=== PATIENT | female | born 1980 ===

== ENCOUNTER 2016-11-10 13:47 | Emergency (ER) | payer OTHER ==
[2016-11-10 14:16] VITALS: RESP 18; O2SAT 100
[2016-11-10 14:57] LABS: BASO # 0.1 K/uL (0.0-0.2); BASO % 0.9 % (0.0-2.0); EOS # 0.1 K/uL (0.0-0.7); EOS % 1.7 % (0.0-4.0); HEMATOCRIT 37.6 % (34.0-47.0); LYMPH # 2.5 K/uL (1.0-4.3); LYMPH % 42.4 % (20.0-40.0); MEAN CELL VOLUME 80.4 fL (81.0-99.0); MEAN CORPUSCULAR HEMOGLOBIN 26.5 pg (27.0-31.0); MEAN PLATELET VOLUME 7.3 fL (7.2-11.7); MONO # 0.5 K/uL (0.0-0.8); MONO % 8.8 % (0.0-10.0); NRBC % 0.1 % (0.0-2.0); RED CELL DISTRIBUTION WIDTH 12.9 % (11.5-14.5); WHITE BLOOD COUNT 5.8 K/uL (4.8-10.8)
--- NOTE | 2016-11-10 14:58 | C.PDOC ---
History Of Present Illness 36 yr old female presents to the ER with complaints of headache, dizziness, nausea and back pain for the past few days. Patient reports the headache is chronic for the past 2-3 years usually is intermittent but last night the headache got worse with nausea and had hard time falling asleep. Patient denies fever, chills, vision changes, chest pain, SOB, vomiting, abdominal pain, diarrhea, weakness or numbness. Time Seen by Provider: 11/10/16 14:19 Chief Complaint (Nursing): Headache History Per: Patient History/Exam Limitations: no limitations Onset/Duration Of Symptoms: Days Current Symptoms Are (Timing): Still Present Past Medical History Reviewed: Historical Data, Nursing Documentation, Vital Signs Vital Signs: Last Vital Signs Temp 97.5 F L 11/10/16 16:51 Pulse 57 L 11/10/16 16:51 Resp 18 11/10/16 16:51 BP 119/84 11/10/16 16:51 Pulse Ox 100 11/10/16 16:51 Family History: States: No Known Family Hx - Social History Hx Alcohol Use: Yes Hx Substance Use: No Review Of Systems Except As Marked, All Systems Reviewed And Found Negative. Constitutional: Negative for: Fever, Chills Eyes: Negative for: Vision Change Cardiovascular: Negative for: Chest Pain Respiratory: Negative for: Shortness of Breath Gastrointestinal: Positive for: Nausea. Negative for: Vomiting, Abdominal Pain , Diarrhea Musculoskeletal: Positive for: Back Pain Neurological: Positive for: Headache, Dizziness. Negative for: Weakness, Numbness Physical Exam - Physical Exam Appears: Well, Non-toxic, No Acute Distress Skin: Warm, Dry Head: Atraumatic, Normacephalic Oral Mucosa: Moist Chest: Symmetrical, No Tenderness Cardiovascular: Rhythm Regular, No Murmur Respiratory: Normal Breath Sounds, No Rales, No Rhonchi, No Stridor, No Wheezing Gastrointestinal/Abdominal: Normal Exam, Soft, No Tenderness, No Guarding, No Rebound Extremity: Normal ROM, No Swelling Neurological/Psych: Oriented x3, Normal Speech, Normal Motor ED Course And Treatment - Laboratory Results Result Diagrams: 11/10/16 14:54 11/10/16 14:54 O2 Sat by Pulse Oximetry: 100 Medical Decision Making Medical Decision Making: PLAN: * CBC * Urinalysis * Imitrex PO * Motrin PO * Tylenol PO * Reglan PO Disposition Counseled Patient/Family Regarding: Studies Performed, Diagnosis, Need For Followup - Disposition Referrals: [facility] [Outside] Disposition: HOME/ ROUTINE Disposition Time: 16:09 Condition: STABLE Prescriptions: SUMAtriptan [Imitrex] 50 mg PO TID PRN #20 tab PRN Reason: Pain, Moderate (4-7) Ibuprofen [Motrin] 600 mg PO TID #15 tab Instructions: Acute Headache (ED), Migraine Headache (ED) Forms: Gen Discharge Inst [place] - POA Present On Arrival: None (') - Clinical Impression Clinical Impression: Migraine, Headache - Scribe Statement The provider has reviewed the documentation as recorded by the Andrés Marrufo Provider Attestation: All medical record entries made by the Andrés were at my direction and personally dictated by me. I have reviewed the chart and agree that the record accurately reflects my personal performance of the history, physical exam, medical decision making, and the department course for this patient. I have also personally directed, reviewed, and agree with the discharge instructions and disposition.
[2016-11-10 15:06] LABS: URINE BACTERIA RARE (<OCC); URINE BILIRUBIN NEGATIVE (NEGATIVE); URINE BLOOD 1+ (NEGATIVE); URINE COLOR Yellow (YELLOW); URINE GLUCOSE (UA) NORMAL (Normal); URINE KETONE NEGATIVE (NEGATIVE); URINE LEUKOCYTE ESTERASE NEG Leu/uL (Negative); URINE PROTEIN NEGATIVE (NEGATIVE); URINE UROBILINOGEN NORMAL mg/dL (0.2-1.0); WBC URINE < 1 /hpf (0-5)
[2016-11-10 15:21] LABS: CHLORIDE 103 mmol/L (98-107); POTASSIUM 4.1 mmol/L (3.6-5.2); SODIUM 139 mmol/L (132-148)
[2016-11-10 15:23] LABS: GFR AFRICAN-AMERICAN > 60
[2016-11-10 15:24] LABS: BLOOD UREA NITROGEN 13 mg/dL (7-17); CALCIUM 9.1 mg/dl (8.6-10.4); CARBON DIOXIDE 25 mmol/L (22-30); GLUCOSE,RANDOM 83 mg/dL (65-105)
[2016-11-10 16:52] VITALS: BP 119/84; PULSE 57; TEMP 97.5
== END 2016-11-10 16:54 | disposition home or self-care (01) ==
LOC: C.ER 13:47
DX: G43.909 Migraine, unspecified, not intractable, without status migrainosus (principal)

== ENCOUNTER 2017-05-16 16:25 | Emergency (ER) | payer OTHER ==
[2017-05-16 16:35] VITALS: RESP 18; TEMP 97.9
[2017-05-16 18:02] LABS: RBC URINE 4 /hpf (0-3); URINE BACTERIA RARE (<OCC); URINE BILIRUBIN NEGATIVE (NEGATIVE); URINE BLOOD 1+ (NEGATIVE); URINE COLOR Yellow (YELLOW); URINE GLUCOSE (UA) NORMAL (Normal); URINE KETONE NEGATIVE (NEGATIVE); URINE LEUKOCYTE ESTERASE NEG Leu/uL (Negative); URINE PROTEIN NEGATIVE (NEGATIVE); URINE UROBILINOGEN NORMAL mg/dL (0.2-1.0); WBC URINE < 1 /hpf (0-5)
--- NOTE | 2017-05-16 19:04 | C.PDOC ---
History Of Present Illness 36 year old female presents to the ED with complaints dizziness, headache, nausea, abdominal pain, fever, and vaginal discharge for three days. She denies hematuria, dysuria, visual changes, vomiting, cough, diarrhea, or sore throat. Time Seen by Provider: 05/16/17 16:48 Chief Complaint (Nursing): Flu-like Symptoms History Per: Patient History/Exam Limitations: no limitations Onset/Duration Of Symptoms: Days (3 days ) Current Symptoms Are (Timing): Still Present Location Of Pain: Diffuse Myalgias, Headache Sick Contacts (Context): None Associated Symptoms: Fever, Nausea. denies: Sore Throat, Cough, Vomiting, Diarrhea Recent travel outside of the [place]: No Past Medical History Reviewed: Historical Data, Nursing Documentation, Vital Signs Vital Signs: Last Vital Signs Temp 97.9 F 05/16/17 16:30 Pulse 75 05/16/17 19:17 Resp 18 05/16/17 19:17 BP 119/65 05/16/17 19:17 Pulse Ox 99 05/16/17 21:44 Family History: States: Unknown Family Hx - Social History Hx Alcohol Use: Yes Hx Substance Use: No Review Of Systems Constitutional: Positive for: Fever. Negative for: Chills Cardiovascular: Negative for: Chest Pain Respiratory: Negative for: Cough, Shortness of Breath Gastrointestinal: Positive for: Nausea, Abdominal Pain. Negative for: Vomiting , Diarrhea Genitourinary: Positive for: Vaginal Discharge. Negative for: Dysuria, Hematuria, Vaginal Bleeding Neurological: Positive for: Headache, Dizziness Physical Exam - Physical Exam Appears: Non-toxic, No Acute Distress Skin: Warm, Dry Head: Atraumatic, Normacephalic Eye(s): bilateral: Normal Inspection, PERRL, EOMI Ear(s): Bilateral: Normal Nose: Normal, No Discharge Oral Mucosa: Moist Throat: Normal, No Erythema, No Exudate Neck: Normal ROM, No Midline Cervical Tenderness, No Paracervical Tenderness, Supple Chest: Symmetrical, No Deformity, No Tenderness Cardiovascular: Rhythm Regular, No Murmur Respiratory: No Rales, No Rhonchi, No Wheezing, Other (clear to auscultation bilaterally ) Gastrointestinal/Abdominal: Normal Exam, Soft, No Tenderness Back: Normal Inspection, No CVA Tenderness, No Vertebral Tenderness, No Paraspinal Tenderness Pelvic: Normal External Exam, No Vaginal Bleeding, Vaginal Discharge (scany grayish ), No Cervical Motion Tenderness, No Adnexal Tenderness Extremity: Normal ROM, No Tenderness, No Swelling Neurological/Psych: Oriented x3, Normal Motor, Normal Sensation Gait: Steady ED Course And Treatment O2 Sat by Pulse Oximetry: 99 (RA) Pulse Ox Interpretation: Normal Progress Note: Labs were ordered and patient was given Motrin and Flagyl. Disposition - Disposition Referrals: [facility] [Outside] Disposition: HOME/ ROUTINE Disposition Time: 18:52 Condition: GOOD Additional Instructions: Follow up with the OBGYN within 1-2 days. return if worsened. 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 - Scribe Statement The provider has reviewed the documentation as recorded by the Scribe Maisha Martinez All medical record entries made by the Vitaibe were at my direction and personally dictated by me. I have reviewed the chart and agree that the record accurately reflects my personal performance of the history, physical exam, medical decision making, and the department course for this patient. I have also personally directed, reviewed, and agree with the discharge instructions and disposition.
[2017-05-16 19:22] VITALS: BP 119/65; PULSE 75
[2017-05-16 21:34] VITALS: O2SAT 99
== END 2017-05-16 19:24 | disposition home or self-care (01) ==
LOC: C.ER 16:25
DX: N76.0 Acute vaginitis (principal)

== ENCOUNTER 2017-10-07 19:23 | Emergency (ER) | payer OTHER ==
[2017-10-07 19:23] VITALS: BMI 26.1
[2017-10-07 19:31] VITALS: BP 110/75; PULSE 105; RESP 18; TEMP 100.2; O2SAT 98
[2017-10-07] MEDS ORDERED: Sodium Chloride 0.9% 1,000 ML IV STA (20:24)
--- NOTE | 2017-10-07 20:24 | C.PDOC ---
History Of Present Illness 37 y/o female presents to the ER complaining of fever and sore throat which has been present for the past 2 days. Patient states that she took 2 doses of leftover Amoxicillin. She also took Motrin at 10 am today. Patient denies having abdominal pain, nausea, vomiting, and diarrhea. HPI: Influenza Time Seen by Provider: 10/07/17 19:40 Chief Complaint: Flu-like Symptoms History Per: Patient Exam Limitations: no limitations Onset/Duration Of Symptoms: Days Symptoms include: fever, sore throat. denies: vomiting, diarrhea Risk factors for flu complications: No: adult > 65 years Past Medical History Reviewed: Historical Data, Nursing Documentation, Vital Signs Vital Signs: Last Vital Signs Temp 100.2 F H 10/07/17 19:28 Pulse 105 H 10/07/17 19:28 Resp 18 10/07/17 19:28 BP 110/75 10/07/17 19:28 Pulse Ox 98 10/07/17 19:28 - Medical History PMH: Kidney Stones, Chronic Kidney Disease Other Surgeries: Hx of surgeries Family History: States: No Known Family Hx - Social History Hx Alcohol Use: Yes Hx Substance Use: No - Immunization History Hx Tetanus Toxoid Vaccination: No Hx Influenza Vaccination: No Hx Pneumococcal Vaccination: No Review Of Systems Except As Marked, All Systems Reviewed And Found Negative. Constitutional: Positive for: Fever. Negative for: Chills ENT: Positive for: Throat Pain Gastrointestinal: Negative for: Nausea, Vomiting, Abdominal Pain, Diarrhea Physical Exam - Physical Exam Appears: Non-toxic, No Acute Distress Skin: Normal Color, Warm Head: Atraumatic, Normacephalic Eye(s): bilateral: Normal Inspection Ear(s): Bilateral: Normal Nose: Normal Oral Mucosa: Moist Throat: No Erythema, Exudate (tonsillar), Other (enlarged tonsils) Neck: Normal ROM, Supple Lymphatic: Adenopathy (anterior cervical and submandibular) Chest: Symmetrical Cardiovascular: Rhythm Regular Respiratory: Normal Breath Sounds, No Rales, No Rhonchi, No Wheezing Extremity: Normal ROM Neurological/Psych: Oriented x3, Normal Speech, Normal Motor, Normal Sensation - Laboratory Results Result Diagrams: 10/07/17 20:39 10/07/17 20:39 - ECG O2 Sat by Pulse Oximetry: 98 (RA) Pulse Ox Interpretation: Normal - Progress ED Course And Treament: Labs and Rapid Strep ordered. Patient given IV Fluids and Toradol IV. Rapid strep and monospot are negative. Patient was given one dose of Clindamycin po. On re-evaluation patient feels better, no drooling/stridor. Patient speaks in full sentences, no difficulties swallowing. Disposition - Disposition Referrals: [facility] [Outside] Disposition: HOME/ ROUTINE Disposition Time: 21:26 Condition: STABLE Additional Instructions: Follow up in Clinic within 1-2 days. Return to ED if feel worse. 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 - Scribe Statement The provider has reviewed the documentation as recorded by the Andrés Fagan Provider Attestation All medical record entries made by the Vitaibe were at my direction and personally dictated by me. I have reviewed the chart and agree that the record accurately reflects my personal performance of the history, physical exam, medical decision making, and the department course for this patient. I have also personally directed, reviewed, and agree with the discharge instructions and disposition.
[2017-10-07] MEDS ORDERED: Dexamethasone 4 mg/1 ml IVP STA (20:25)
[2017-10-07] MEDS ORDERED: Dexamethasone 4 mg/1 ml ONE (20:30)
[2017-10-07] MEDS ORDERED: Sodium Chloride 0.9% 1,000 ML ONE (20:30)
[2017-10-07 20:43] LABS: BASO # 0.1 K/uL (0.0-0.2); BASO % 0.4 % (0.0-2.0); EOS % 0.1 % (0.0-4.0); HEMOGLOBIN 12.8 g/dL (11.0-16.0); LYMPH # 1.5 K/uL (1.0-4.3); LYMPH % 10.7 % (20.0-40.0); MEAN CORPUSCULAR HEMOGLOBIN 25.6 pg (27.0-31.0); MEAN CORPUSCULAR HGB CONC 32.5 g/dL (33.0-37.0); MEAN PLATELET VOLUME 7.6 fL (7.2-11.7); MONO # 0.8 K/uL (0.0-0.8); MONO % 5.8 % (0.0-10.0); NEUT # 11.4 K/uL (1.8-7.0); RBC 4.99 Mil/uL (3.80-5.20); RED CELL DISTRIBUTION WIDTH 13.9 % (11.5-14.5)
[2017-10-07 20:45] LABS: WHITE BLOOD COUNT 13.7 K/uL (4.8-10.8)
[2017-10-07 20:57] LABS: ALB/GLOB RATIO 1.1 (1.0-2.1); ALBUMIN 4.3 g/dL (3.5-5.0); ALT/SGPT 21 U/L (9-52); AST/SGOT 18 U/L (14-36); BLOOD UREA NITROGEN 12 mg/dL (7-17); CALCIUM 8.9 mg/dl (8.6-10.4); GFR AFRICAN-AMERICAN > 60; GFR NON-AFRICAN AMERICAN > 60
== END 2017-10-07 21:57 | disposition home or self-care (01) ==
LOC: C.ER 19:23
DX: J02.9 Acute pharyngitis, unspecified (principal)
CPT/HCPCS: 80053; 85025; 86308; 87070; 87430; 96361; 96374; 96375; 99284; J1100; J1885; J7040

== ENCOUNTER 2018-01-27 00:46 | Emergency (ER) | payer OTHER ==
[2018-01-27 00:47] VITALS: BMI 26.1
[2018-01-27 00:55] VITALS: TEMP 97.8
[2018-01-27] MEDS ORDERED: Sodium Chloride 0.9% 1,000 ML IV ONE (01:36)
[2018-01-27] MEDS ORDERED: Sodium Chloride 0.9% 1,000 ML ONE (02:23)
[2018-01-27 02:24] LABS: BASO % 0.7 % (0.0-2.0); EOS # 0.1 K/uL (0.0-0.7); EOS % 1.7 % (0.0-4.0); HEMOGLOBIN 11.1 g/dL (11.0-16.0); LYMPH # 2.4 K/uL (1.0-4.3); MEAN CELL VOLUME 77.7 fL (81.0-99.0); MEAN CORPUSCULAR HGB CONC 33.4 g/dL (33.0-37.0); MEAN PLATELET VOLUME 7.7 fL (7.2-11.7); MONO # 0.7 K/uL (0.0-0.8); MONO % 11.2 % (0.0-10.0); NEUT # 2.8 K/uL (1.8-7.0); NEUT % 46.4 % (50.0-75.0); NRBC % 0.1 % (0.0-2.0); RBC 4.26 Mil/uL (3.80-5.20); RED CELL DISTRIBUTION WIDTH 13.5 % (11.5-14.5)
[2018-01-27 02:29] LABS: SQUAMOUS EPITHIAL 21 /hpf (0-5); URINE AMORPHOUS SEDIMENT RARE /ul (<OCC); URINE BACTERIA RARE (<OCC); URINE BILIRUBIN NEGATIVE (NEGATIVE); URINE BLOOD 2+ (NEGATIVE); URINE CLARITY Hazy (Clear); URINE COLOR Yellow (YELLOW); URINE GLUCOSE (UA) NORMAL (Normal); URINE LEUKOCYTE ESTERASE NEG Leu/uL (Negative); URINE PROTEIN NEGATIVE (NEGATIVE)
[2018-01-27 02:39] LABS: ALB/GLOB RATIO 1.3 (1.0-2.1); ALT/SGPT 54 U/L (9-52); AST/SGOT 35 U/L (14-36); BLOOD UREA NITROGEN 12 mg/dL (7-17); CALCIUM 9.1 mg/dl (8.6-10.4); GFR AFRICAN-AMERICAN > 60; GFR NON-AFRICAN AMERICAN > 60; LIPASE 71 U/L (23-300)
--- NOTE | 2018-01-27 03:12 | C.PDOC ---
History Of Present Illness 37 year old female patient presents to the ER with complains of abdominal pain associated with nausea and diarrhea for 5 days. The diarrhea has not subsided nor has it improved with fluids. Patient denies fever, chills, travelling, and vomiting. Time Seen by Provider: 01/27/18 01:19 Chief Complaint (Nursing): Abdominal Pain History Per: Patient History/Exam Limitations: no limitations Onset/Duration Of Symptoms: Days Current Symptoms Are (Timing): Still Present Location Of Pain/Discomfort: Diffuse Associated Symptoms: Nausea, Diarrhea. denies: Fever, Vomiting Recent travel outside of the [place]: No Additional History Per: Patient Abnormal Vaginal Bleeding: No Past Medical History Reviewed: Historical Data, Nursing Documentation, Vital Signs Vital Signs: Last Vital Signs Temp 97.8 F 01/27/18 03:31 Pulse 80 01/27/18 03:31 Resp 14 01/27/18 03:31 BP 120/80 01/27/18 03:31 Pulse Ox 97 01/27/18 04:57 - Medical History PMH: Kidney Stones, Chronic Kidney Disease Surgical History: No Surg Hx Family History: States: Unknown Family Hx - Social History Hx Alcohol Use: Yes Hx Substance Use: No - Immunization History Hx Tetanus Toxoid Vaccination: No Hx Influenza Vaccination: No Hx Pneumococcal Vaccination: No Review Of Systems Except As Marked, All Systems Reviewed And Found Negative. Constitutional: Negative for: Fever Cardiovascular: Negative for: Chest Pain, Palpitations Respiratory: Negative for: Cough, Shortness of Breath Gastrointestinal: Positive for: Nausea, Abdominal Pain, Diarrhea. Negative for : Vomiting Musculoskeletal: Negative for: Back Pain Neurological: Negative for: Weakness, Numbness Physical Exam - Physical Exam Appears: Non-toxic, No Acute Distress Skin: Normal Color, Warm, Dry Head: Atraumatic, Normacephalic Eye(s): bilateral: Normal Inspection Ear(s): Bilateral: Normal Oral Mucosa: Moist Throat: Normal, No Erythema, No Exudate Neck: Normal ROM, Supple Chest: Symmetrical, No Deformity Cardiovascular: Rhythm Regular Respiratory: Normal Breath Sounds, No Rales, No Rhonchi, No Wheezing Gastrointestinal/Abdominal: Bowel Sounds (increased), Soft, No Tenderness, No Guarding, No Rebound Back: No CVA Tenderness Extremity: Normal ROM (x4), No Tenderness, No Swelling Neurological/Psych: Oriented x3, Normal Speech Gait: Steady ED Course And Treatment - Laboratory Results Result Diagrams: 01/27/18 02:20 01/27/18 02:20 Urine POC: Negative O2 Sat by Pulse Oximetry: 97 (RA) Pulse Ox Interpretation: Normal Progress Note: Ordered: blood work, Famotidine IVP, Metoclopramide, IV fluid, and urinalysis. Patient feels better after receiving IV fluids and meds. Return precautiok Reassessment Condition: Improved Disposition Counseled Patient/Family Regarding: Diagnosis, Need For Followup - Disposition Referrals: [facility] [Outside] Disposition: HOME/ ROUTINE Disposition Time: 03:08 Condition: STABLE Additional Instructions: Increase PO fluids ( Gatorade, vitamin water, white bread, white rice, tea, clear soup, jello No Dairy for at least 24 hrs Return to ER if worse Prescriptions: Dicyclomine [Dicyclomine HCl] 10 mg PO DAILY #10 cap Instructions: Viral Gastroenteritis, Adult (DC) Forms: [employer] (Ugandan) Print Language: TURKISH - Clinical Impression Clinical Impression: Gastroenteritis - PA / STORAGE ENGINEER / Resident Statement / has reviewed & agrees with the documentation as recorded. - Scribe Statement The provider has reviewed the documentation as recorded by the Andrés Fraga Do All medical record entries made by the Scribe were at my direction and personally dictated by me. I have reviewed the chart and agree that the record accurately reflects my personal performance of the history, physical exam, medical decision making, and the department course for this patient. I have also personally directed, reviewed, and agree with the discharge instructions and disposition.
[2018-01-27 03:32] VITALS: BP 120/80; PULSE 80; RESP 14
[2018-01-27 04:39] VITALS: O2SAT 97
== END 2018-01-27 03:32 | disposition home or self-care (01) ==
LOC: C.ER 00:46
DX: K52.9 Noninfective gastroenteritis and colitis, unspecified (principal); N18.9 Chronic kidney disease, unspecified; Z87.442 Personal history of urinary calculi
CPT/HCPCS: 80053; 81001; 83690; 84703; 85025; 96374; 96375; 99283; J2765; J7030

== ENCOUNTER 2018-08-17 18:35 | Emergency (ER) | payer OTHER ==
[2018-08-17 18:35] VITALS: BMI 26.1
[2018-08-17] MEDS ORDERED: Sodium Chloride 0.9% 1,000 ML IV STA (19:54)
[2018-08-17] MEDS ORDERED: SODIUM CHLORIDE 0.9% IV STA (19:54)
[2018-08-17] MEDS ORDERED: LIDOCAINE IV STA (19:54)
[2018-08-17] MEDS ORDERED: Iohexol 240 (50 ml) PO ONE (19:55)
[2018-08-17 20:09] LABS: SQUAMOUS EPITHIAL 1 /hpf (0-5); URINE BILIRUBIN NEGATIVE (NEGATIVE); URINE BLOOD 2+ (NEGATIVE); URINE CLARITY Clear (Clear); URINE COLOR Yellow (YELLOW); URINE GLUCOSE (UA) NORMAL (Normal); URINE HYALINE CAST 0-2 /lpf (0-2); URINE LEUKOCYTE ESTERASE NEG Leu/uL (Negative); URINE PROTEIN NEGATIVE (NEGATIVE); URINE UROBILINOGEN NORMAL mg/dL (0.2-1.0)
[2018-08-17 20:18] LABS: BASO % 0.7 % (0.0-2.0); EOS # 0.1 K/uL (0.0-0.7); HEMOGLOBIN 12.1 g/dL (11.0-16.0); LYMPH # 2.9 K/uL (1.0-4.3); LYMPH % 39.1 % (20.0-40.0); MEAN CORPUSCULAR HEMOGLOBIN 25.3 pg (27.0-31.0); MEAN CORPUSCULAR HGB CONC 31.5 g/dL (33.0-37.0); MONO # 0.5 K/uL (0.0-0.8); MONO % 7.1 % (0.0-10.0); NEUT # 3.8 K/uL (1.8-7.0); NEUT % 51.1 % (50.0-75.0); RBC 4.76 Mil/uL (3.80-5.20); RED CELL DISTRIBUTION WIDTH 14.6 % (11.5-14.5); WHITE BLOOD COUNT 7.5 K/uL (4.8-10.8)
[2018-08-17] MEDS ORDERED: Sodium Chloride 0.9% 1,000 ML ONE (20:21)
[2018-08-17 20:23] LABS: MEAN CELL VOLUME 80.4 fL (81.0-99.0)
[2018-08-17 20:32] LABS: ALB/GLOB RATIO 1.4 (1.0-2.1); ALBUMIN 4.6 g/dL (3.5-5.0); ALT/SGPT 16 U/L (9-52); AST/SGOT 20 U/L (14-36); BLOOD UREA NITROGEN 14 mg/dL (7-17); CALCIUM 9.2 mg/dl (8.6-10.4); GFR NON-AFRICAN AMERICAN > 60
[2018-08-17] MEDS ORDERED: Iohexol 240 (50 ml) ONE (20:35)
--- NOTE | 2018-08-17 21:05 | C.PDOC ---
History Of Present Illness Patient is a 38 year old female who presents to the ED c/o lower back and abdominal pain that has began 3 days ago. As per patient's family, the pain first began in her back and then progressed to her abdomen. Patient states the pain is currently strongest in her abdomen. She denies any CP, SOB, hematuria, dysuria, nausea, vomiting, or diarrhea. Time Seen by Provider: 08/17/18 19:18 Chief Complaint (Nursing): Female Genitourinary History Per: Patient, Family History/Exam Limitations: language barrier Onset/Duration Of Symptoms: Days (3) Current Symptoms Are (Timing): Still Present Recent travel outside of the [place] States: No Additional History Per: Patient, Family Past Medical History Reviewed: Historical Data, Nursing Documentation, Vital Signs Vital Signs: Last Vital Signs Temp 98 F 08/17/18 18:42 Pulse 64 08/17/18 20:53 Resp 18 08/17/18 20:53 BP 139/90 08/17/18 20:53 Pulse Ox 98 08/17/18 18:42 - Medical History PMH: Kidney Stones, Chronic Kidney Disease Surgical History: No Surg Hx Family History: States: Unknown Family Hx - Social History Hx Alcohol Use: No Hx Substance Use: No - Immunization History Hx Tetanus Toxoid Vaccination: No Hx Influenza Vaccination: No Hx Pneumococcal Vaccination: No Review Of Systems Cardiovascular: Negative for: Chest Pain Respiratory: Negative for: Shortness of Breath Gastrointestinal: Positive for: Abdominal Pain. Negative for: Nausea, Vomiting, Diarrhea Genitourinary: Negative for: Dysuria, Hematuria Musculoskeletal: Positive for: Back Pain (lower) Physical Exam - Physical Exam Appears: Non-toxic, No Acute Distress Skin: Normal Color, Warm, Dry Head: Atraumatic, Normacephalic Oral Mucosa: Moist Neck: Normal ROM, Supple Chest: Symmetrical, No Deformity Cardiovascular: Rhythm Regular, No Murmur Respiratory: Normal Breath Sounds, No Rales, No Rhonchi, No Wheezing Gastrointestinal/Abdominal: Soft, Tenderness (mildly tender to right groin area) Back: CVA Tenderness (minor right ), Other (full ROM without difficulty ) Extremity: Normal ROM Neurological/Psych: Oriented x3, Normal Speech, Normal Cognition ED Course And Treatment - Laboratory Results Result Diagrams: 08/17/18 20:12 08/17/18 20:12 Lab Results: Total Bilirubin 0.2 mg/dL (0.2-1.3) 08/17/18 20:12 AST 20 U/L (14-36) 08/17/18 20:12 ALT 16 U/L (9-52) 08/17/18 20:12 Alkaline Phosphatase 74 U/L (38-126) 08/17/18 20:12 Total Protein 7.8 g/dL (6.3-8.3) 08/17/18 20:12 Albumin 4.6 g/dL (3.5-5.0) 08/17/18 20:12 Globulin 3.2 gm/dL (2.2-3.9) 08/17/18 20:12 Albumin/Globulin Ratio 1.4 (1.0-2.1) 08/17/18 20:12 Urine Color Yellow (YELLOW) 08/17/18 19:58 Urine Clarity Clear (Clear) 08/17/18 19:58 Urine pH 5.0 (5.0-8.0) 08/17/18 19:58 Ur Specific Hasty 1.019 (1.003-1.030) 08/17/18 19:58 Urine Protein Negative mg/dL (NEGATIVE) 08/17/18 19:58 Urine Glucose (UA) Normal mg/dL (Normal) 08/17/18 19:58 Urine Ketones Negative mg/dL (NEGATIVE) 08/17/18 19:58 Urine Blood 2+ (NEGATIVE) H 08/17/18 19:58 Urine Nitrate Negative (NEGATIVE) 08/17/18 19:58 Urine Bilirubin Negative (NEGATIVE) 08/17/18 19:58 Urine Urobilinogen Normal mg/dL (0.2-1.0) 08/17/18 19:58 Ur Leukocyte Esterase Neg Luis Enrique/uL (Negative) 08/17/18 19:58 Urine WBC (Auto) < 1 /hpf (0-5) 08/17/18 19:58 Urine RBC (Auto) 12 /hpf (0-3) H 08/17/18 19:58 Ur Squamous Epith Cells 1 /hpf (0-5) 08/17/18 19:58 Hyaline Casts 0-2 /lpf (0-2) 08/17/18 19:58 O2 Sat by Pulse Oximetry: 98 (on RA) Pulse Ox Interpretation: Normal - CT Scan/US CT eplvis Other Rad Studies (CT/US): Read By Radiologist, Radiology Report Reviewed CT/US Interpretation: EXAM: CT Abdomen and Pelvis Without IV contrast. CLINICAL HISTORY: RLQ PAIN. TECHNIQUE: Axial computed tomography images of the abdomen and pelvis without intravenous contrast. CONTRAST: No IV contrast. Oral contrast was utilized. COMPARISON: None provided. FINDINGS: LUNG BASES: The lung bases appear clear. No pleural effusions are seen. LIVER: There is mild hepatomegaly. The liver measured approximately 17.2 cm in the midclavicular line. No hepatic mass detected. GALLBLADDER AND BILE DUCTS: The gallbladder appears within normal limits. No radioopaque gallstones are seen. No biliary ductal dilatation is evident. PANCREAS: Unremarkable. SPLEEN: Unremarkable. ADRENAL GLANDS: Unremarkable. KIDNEYS, URETERS, AND BLADDER: There is no hydronephrosis or hydroureter. An approximately 2.0 mm non- obstructing calculus is seen in the anteromedial lower right renal pole. STOMACH AND BOWEL: A small hiatal hernia is present. Unremarkable appearance of the stomach and bowel. No evidence of bowel obstruction. No evidence suggesting enteritis or colitis. APPENDIX: No evidence of acute appendicitis on CT examination. PERITONEUM: No free fluid. No free air. A very small umbilical hernia is present which contains fat. There is subtle haziness in the me senteric fat of the right lower quadrant which could indicate some nonspecific mesenteritis. LYMPH NODES: No lymphadenopathy is evident. REPRODUCTIVE: Unremarkable as visualized. VASCULATURE: No evidence of abdominal aortic aneurysm. BONES: No aggressive appearing osseous lesion. No acute osseous pathology evident. IMPRESSION: 1. Findings suggestive of subtle mesenteritis in the right lower quadrant mesenteric fat. 2. A small hiatal hernia is present. 3. Very small umbilical hernia which contains fat. 4. A punctate non-obstructing calculus is seen in the anteromedial lower right renal pole. 5. Mild hepatomegaly. Measurement is given above. . Electronically signed on Aug 17, 2018 10:44:45 PM EST by: Ishaan Hirsch M.D., MBA Certified By ABR & CBCCT. Fellowship Trained MRI and CT Specialist Progress Note: CAT Abd/Pelvis, Bloodwork, POC Urine and Urinalysis ordered and reviewed. Omnipaque 50ml PO, Toradol 30mg IVPm Lidocaine 125mg IV, IV Fluids, and Flomax 0.4mg PO administered. Reevaluation Time: 23:07 Reassessment Condition: Improved (ASYMPT NAD NO S/S ACUTE ABD.) Disposition Counseled Patient/Family Regarding: Studies Performed, Diagnosis, Need For Followup, Rx Given - Disposition Referrals: [facility] [Outside] [facility] [Outside] Disposition: HOME/ ROUTINE Disposition Time: 23:07 Condition: IMPROVED Instructions: Acute Abdomen (Belly Pain), Adult (DC), Kidney Stones (DC) Forms: [employer] (Maltese) Print Language: ENGLISH - Clinical Impression Clinical Impression: Abdominal pain - Scribe Statement The provider has reviewed the documentation as recorded by the Scribe Geri Solis All medical record entries made by the Vitaibe were at my direction and personally dictated by me. I have reviewed the chart and agree that the record accurately reflects my personal performance of the history, physical exam, medical decision making, and the department course for this patient. I have also personally directed, reviewed, and agree with the discharge instructions and disposition.
[2018-08-17 23:32] VITALS: BP 133/89; PULSE 65; RESP 16; TEMP 98.7; O2SAT 100
--- NOTE | 2018-08-18 09:50 | CT ---
CT abdomen and pelvis HISTORY: Abdominal pain. Comparison: None available. Technique: Multiple contiguous axial images were performed through the abdomen and pelvis without the use of intravenous contrast. Subsequently, sagittal and coronal reformatted images were obtained. Findings: 1 millimeter subpleural pulmonary nodule within the posterior aspect of the right lower lobe. Lung bases are otherwise clear. No pleural or pericardial effusion. Mild hepatomegaly. Gallbladder is preserved. Spleen is preserved. Adrenal glands are preserved. Pancreas is preserved. Underdistended and or mildly thick-walled stomach. Clinical correlation. Few mildly distended loops of small bowel in the upper mid abdomen. Right kidney: 2 millimeter nonobstructive calculus in the anterior midpole of the right kidney. Left Kidney: No calculi or hydronephrosis. Urinary bladder is preserved. Heterogeneous uterus and bilateral adnexa. Fecal retention the colon. Appendix is visualized and within normal limits. Few shotty lymph nodes seen within the right mid and lower abdomen which may represent a mesenteric adenitis. Few shotty para-aortic and inguinal lymph nodes. Small fat containing midline umbilical hernia. Degenerative changes in the spine. Impression: Findings suggestive for a possible subtle mesenteric adenitis in the right lower quadrant mesenteric fat with some few shotty lymph nodes at that level. Clinical correlation. Small hiatal hernia. Small umbilical fat containing hernia. 2 millimeter nonobstructing calculus seen within the right kidney. Mild hepatomegaly. 1 millimeter subpleural pulmonary nodule within the posterior aspect of the right lower lobe. Additional findings as above. A preliminary report was generated at 10:44 p.m. on 08/17/[address] Ishaan Hirsch from [employer]
== END 2018-08-17 23:39 | disposition home or self-care (01) ==
LOC: C.ER 18:35
DX: R10.9 Unspecified abdominal pain (principal); N18.9 Chronic kidney disease, unspecified; Z87.442 Personal history of urinary calculi
CPT/HCPCS: 74176; 80053; 81001; 81025; 85025; 96374; 99284; J1885; J2001; J7030; Q9966

== ENCOUNTER 2018-11-23 13:44 | Outpatient (CLI) | payer OTHER | END 2018-11-23 13:45 | disposition home or self-care (01) | LOC: C.USIC 13:44 ==

== ENCOUNTER 2018-11-24 22:01 | Emergency (ER) | payer OTHER ==
[2018-11-24 22:01] VITALS: BMI 26.1
[2018-11-24 22:27] VITALS: BP 135/84; PULSE 78; RESP 20; TEMP 98; O2SAT 98
--- NOTE | 2018-11-24 23:12 | C.PDOC ---
History Of Present Illness 38-year-old female presents to the ED for evaluation of weakness, tiredness and insomnia for one week. Patient is requesting for her blood pressure to be checked. Patient is also requesting medication to help her sleep at night. Patient reports vague bilateral trapezius neck discomfort and nasal congestion, and has not taken anything for her pain. Patient is certain that she is not and denies fever, chills. Time Seen by Provider: 11/24/18 23:03 Chief Complaint (Nursing): Dizziness/Lightheaded History Per: Patient History/Exam Limitations: no limitations Onset/Duration Of Symptoms: Hrs Current Symptoms Are (Timing): Still Present Past Medical History Reviewed: Historical Data, Nursing Documentation, Vital Signs Vital Signs: Last Vital Signs Temp 98 F 11/24/18 22:22 Pulse 78 11/24/18 22:22 Resp 20 11/24/18 22:22 BP 135/84 11/24/18 22:22 Pulse Ox 98 11/24/18 22:22 Primary Care Provider: Clinic,Med Surg - Medical History PMH: Kidney Stones, Chronic Kidney Disease Surgical History: No Surg Hx Family History: States: Unknown Family Hx - Social History Hx Alcohol Use: No Hx Substance Use: No - Immunization History Hx Tetanus Toxoid Vaccination: No Hx Influenza Vaccination: No Hx Pneumococcal Vaccination: No Review Of Systems Constitutional: Positive for: Weakness, Other (tiredness, insomnia ). Negative for: Fever, Chills ENT: Positive for: Nose Congestion Musculoskeletal: Positive for: Other (bilateral vague trapezius discomfort ) Physical Exam - Physical Exam Appears: Non-toxic, No Acute Distress, Other (obese Hispnanic female ) Skin: Normal Color, Warm, Dry Head: Atraumatic, Normacephalic Eye(s): bilateral: Normal Inspection Nose: Other (inflamed nasal passages, right greater than left ) Oral Mucosa: Moist Neck: Supple Chest: Symmetrical, No Deformity, No Tenderness Cardiovascular: Rhythm Regular, No Murmur Respiratory: Normal Breath Sounds, No Rales, No Rhonchi, No Wheezing Gastrointestinal/Abdominal: Soft, No Tenderness, No Guarding, No Rebound Extremity: Normal ROM, Capillary Refill (less than 2 seconds ) Neurological/Psych: Oriented x3, Normal Speech, Normal Cognition ED Course And Treatment O2 Sat by Pulse Oximetry: 98 (on RA ) Pulse Ox Interpretation: Normal Progress Note: Motrin PO given. Patient with stable blood pressure in the ED. Medical Decision Making Medical Decision Making: Allergias de la Temporada: Claritin 10 mg diario Flonase Espray- 1 spray cada lado del nariz cada 12 horas Sulma del cuerpo/muscular Ibuprofeno/Advil 400-600 mg cada 6 horas saeid necessario Disposition Doctor Will See Patient In The: Office Counseled Patient/Family Regarding: Studies Performed, Diagnosis - Disposition Referrals: [facility] [Outside] [facility] [employer] [facility] [Outside] [facility] [Outside] [facility] [Outside] Disposition: HOME/ ROUTINE Disposition Time: 23:12 Condition: GOOD Instructions: Seasonal Allergies in Adults, Muscle and Bone Pain (DC) Forms: [employer] (Yi) Print Language: [place] ISLAND[place] - Clinical Impression Clinical Impression: Body aches, Nasal congestion - Scribe Statement The provider has reviewed the documentation as recorded by the Scribe (Xin Freeman) Provider Attestation: All medical record entries made by the Scribe were at my direction and personally dictated by me. I have reviewed the chart and agree that the record accurately reflects my personal performance of the history, physical exam, medical decision making, and the department course for this patient. I have also personally directed, reviewed, and agree with the discharge instructions and disposition.
== END 2018-11-24 23:23 | disposition home or self-care (01) ==
LOC: C.ER 22:01
DX: R52 Pain, unspecified (principal); R09.81 Nasal congestion